=== PATIENT | male | born 1985 | race Two or more races ===

== ENCOUNTER 2020-06-08 16:23 | Emergency (ER) | payer OTHER ==
[~2020-06-08] VITALS: Ht 170.2 cm; Wt 72.6 kg
[2020-06-08 16:31] VITALS: BP 117/73
[2020-06-08] MEDS ORDERED: AMOX-430 PO (16:38)
--- NOTE | 2020-06-08 16:53 | NUR ---
Pt medically cleared for booking. Discharged to [employer] custody
[2020-06-08] MEDS ORDERED: TDAP [DIPH/PERTUSSIS/TET] 0.5 ML VIAL IM ONE (17:00)
== END 2020-06-08 16:54 ==
LOC: ER 16:28
DX: S61.210A Laceration without foreign body of right index finger without damage to nail, initial encounter (principal); W54.0XXA Bitten by dog, initial encounter; Y93.89 Activity, other specified; Y92.89 Other specified places as the place of occurrence of the external cause; Y99.8 Other external cause status